=== PATIENT | male | born 1955 | race Caucasian/White ===

== ENCOUNTER 2020-04-29 13:48 | Emergency (ER) | payer OTHER, SELFPAY ==
[2020-04-29 13:58] VITALS: BP 160/80; PULSE 73; RESP 16; TEMP 36.8; O2SAT 99
[2020-04-29] MEDS: predniSONE 20 MG TABLET 40 MG PO (14:18)
--- NOTE | 2020-04-29 14:18 | ED.SKABFB ---
HPI - Skin/Abscess/Foreign Bdy General Chief complaint: Skin/Abscess/Foreign Body Stated complaint: rash Source: patient and RN notes reviewed Mode of arrival: ambulatory Limitations: no limitations History of Present Illness HPI narrative: This is a 64-year-old white male that presented to the urgent care with generalized rash on his upper body. Patient's past medical history is hypertension. According to patient he was out in the yard with his daughter and came in contact with poison sumit. Patient notes that in the past he has blistered up and the skin rash from his poison sumit has spread rapidly. He also noted that his physician ordered steroids for treatment. Patient did take Benadryl overnight with calamine lotion with no relief. Patient does have a generalized rash on his upper body starting from his lower abdominal area to his back. The patient denies SOB, CP, palpitation, extremity numbness, lightheadedness, dizziness, constipation, diarrhea, chills, or fever. MD complaint: rash Location: chest and back Severity: moderate Treatments prior to arrival: Benadryl and other (Calamine lotion) Related Data Home Medications Medication Instructions Recorded Confirmed losartan 50 mg PO DAILY 04/29/20 04/29/20 Allergies Allergy/AdvReac Type Severity Reaction Status Date / Time meperidine Allergy Intermediate MUSCLE Verified 10/12/18 12:50 SPASMS Review of Systems Review of Systems: All systems reviewed & are unremarkable except as noted in HPI and below (10 point system review) Exam Narrative: Exam Narrative: GENERAL: This is a well-nourished, well-developed patient, in no apparent distress. HEAD: normocephalic, atraumatic. EYES: PERRL. Sclera clear/white. Vision is grossly intact. EARS: External ears normal, auditory canals clear and without drainage, TMs normal without perforation. Hearing grossly intact. NOSE: External nose normal with no obvious nasal discharge, nares without redness, no rhinorrhea. THROAT: Mucous membranes moist, posterior pharynx clear. NECK: Neck supple, non-tender without lymphadenopathy, masses or thyromegaly. CARDIOVASCULAR: Regular rate and rhythm without murmurs, gallops, or rubs. RESPIRATORY: Clear to auscultation. Breath sounds equal bilaterally. No wheezes, rales, or rhonchi. GASTROINTESTINAL: Abdomen soft, non-tender, nondistended. Bowel sounds are active. No hepato-splenomegaly, or palpable masses. No guarding. SKIN: erythema, edemous vesicles and round lesion on patient abd, chest, should and back area NEURO: awake, alert, and oriented to person, place and time. There were no obvious focal neurologic abnormalities. Steady gait EXTREMITIES: Normal range of motion. No edema. No calf tenderness. Negative Homans sign bilaterally. BACK: Nontender without deformity or crepitance. No flank tenderness. Course Course Emergency Course: Patient was discharged with prednisone, hydroxyzine and hydrocortisone lotion Vital Signs Vital signs: Vital Signs Temperature 98.2 F 04/29/20 13:58 Pulse Rate 73 04/29/20 13:58 Respiratory Rate 16 04/29/20 13:58 Blood Pressure 160/80 H 04/29/20 13:58 Pulse Oximetry 99 04/29/20 13:58 Temperature 98.2 F 04/29/20 13:58 Pulse Rate 73 04/29/20 13:58 Respiratory Rate 16 04/29/20 13:58 Blood Pressure 160/80 H 04/29/20 13:58 Pulse Oximetry 99 04/29/20 13:58 MDM - Skin/Abscess/Foreign Bdy Differential Diagnosis Differential diagnosis: Likely allergic reaction to drug, cellulitis and contact dermatitis Discharge Plan Discharge Clinical Impression: Contact dermatitis Patient Disposition: Home, Self-Care Condition: Stable Instructions: Antibiotic Form, Prednisolone (By mouth) Additional Instructions: Wash the area with soap and cool water only. Avoid scratching when possible to prevent worsening of the condition and disruption of the skin that could lead to bacterial infection To relieve itching, place a cool wa
== END 2020-04-29 14:35 | disposition home or self-care (01) ==
PROVIDERS: Emergency Provider Nurse Practitioner
DX: L25.9 Unspecified contact dermatitis, unspecified cause (principal); I10 Essential (primary) hypertension; H26.9 Unspecified cataract
CPT/HCPCS: 99213; G0463; J7512

== ENCOUNTER 2023-09-11 11:58 | Emergency (ER) | payer MEDICARE, OTHER, SELFPAY ==
[2023-09-11 12:10] VITALS: BP 164/89; PULSE 85; RESP 16; TEMP 37.8
--- NOTE | 2023-09-11 12:26 | ED.URI ---
HPI - URI/Sore Throat General Chief Complaint: Upper Respiratory Infection Stated Complaint: Bodyaches/Fever Time Seen by Provider: 09/11/23 12:29 Source: patient and RN notes reviewed Mode of arrival: ambulatory Limitations: no limitations History of Present Illness HPI Narrative: 68-year-old male presented for complaint of fever, body aches, sore throat. Worsening since onset last night. Taking Tylenol for symptoms. Endorses family has been sick. Denies shortness of, wheezing, nausea, vomiting, diarrhea or lethargy. MD elicited complaint: cough Related Data Home Medications Medication Instructions Recorded Confirmed losartan 50 mg tablet 50 mg PO DAILY 04/29/20 09/11/23 tadalafil 20 mg tablet 20 mg PO PRN PRN Erectile 09/11/23 09/11/23 Dysfunction valacyclovir 500 mg tablet 500 mg PO DAILY 09/11/23 09/11/23 Allergies Allergy/AdvReac Type Severity Reaction Status Date / Time meperidine Allergy Intermediate MUSCLE Verified 09/11/23 12:15 SPASMS Review of Systems Review of Systems: CONSTITUTIONAL: Endorses malaise, chills, sweats, fever EYES: Denies visual changes, redness, or discharge ENT: Reports rhinorrhea, Denies sinus pain, otalgia, sore throat CARDIOVASCULAR: Denies chest pain, palpitations, edema RESPIRATORY: Reports cough, post nasal drainage. Denies dyspnea GASTROINTESTINAL: Denies abdominal pain, nausea, vomiting, diarrhea SKIN: Denies rash or itching MUSCULOSKELETAL: Endorses myalgia Exam Narrative: GENERAL: mildly Ill-appearing, nontoxic no acute distress. EYES: PERRLA, conjunctivae clear ENT: Mucous membranes moist. TM pearly whittaker with dull light reflex bilaterally; no tragal tenderness. Oropharynx erythematous without lesions or exudate, no drooling, no hoarseness, no trismus, uvula midline. No tripod positioning, muffled voice, soft palate or pharyngeal wall bulging NECK: Supple. No lymphadenopathy CHEST: Clear to auscultation, breath sounds equal. No wheezing, rhonchi, rales, or stridor. No respiratory distress, speaks in full sentences. HEART: Regular rate and rhythm. No murmur heard. SKIN: Warm, dry, no rash. NEURO: Alert and oriented x3. PSYCH: Normal mood and affect Course Course Emergency Course: Patient is aware of diagnosis, understands and agrees to treatment plan. Anticipatory guidance given. Patient agrees to follow-up as directed and is aware of reasons to seek care at the emergency department. Portions of this record may have been created with voice recognition software Level of Care: Express Care Visit Vital Signs Vital signs: Vital Signs Temperature 100.1 F H 09/11/23 12:10 Pulse Rate 85 09/11/23 12:10 Respiratory Rate 16 09/11/23 12:10 Blood Pressure 164/89 H 09/11/23 12:10 Temperature 100.1 F H 09/11/23 12:10 Pulse Rate 85 09/11/23 12:10 Respiratory Rate 16 09/11/23 12:10 Blood Pressure 164/89 H 09/11/23 12:10 reviewed MDM - URI/Sore Throat MDM Narrative Medical decision making narrative: Negative flu, COVID, strep. Results reviewed with patient. Discussed physical exam findings. Advised supportive measures and signs/symptoms to go to the ER. Pt is appropriate for outpt treatment and f/u. Differential Diagnosis Differential diagnosis: Likely upper respiratory infection, sinusitis and viral infection Discharge Plan Discharge Clinical Impression: Upper respiratory infection Patient Disposition: Home, Self-Care Condition: Stable Instructions: Antibiotic Form, Upper Respiratory Infection (ED) Additional Instructions: flu test negative. Your rapid covid test was negative today. It may be too early to detect the virus, therefore we recommend retesting at home in 1-2 days Continue to follow general precautions: frequent handwashing, wear a mask, isolate/social distance, and avoid crowds if you have a fever. You must be fever free for 24 hours without the use of fever reducing medication (Tylenol/ibupro
== END 2023-09-11 12:53 | disposition home or self-care (01) ==
PROVIDERS: Emergency Provider Nurse Practitioner Family
DX: J06.9 Acute upper respiratory infection, unspecified (principal); Z20.822 Contact with and (suspected) exposure to COVID-19
CPT/HCPCS: 87081; 87426; 87804; 87880; 99213; G0463